=== PATIENT | male | born 1995 | race Caucasian/White ===

== ENCOUNTER 2017-05-08 18:45 | Emergency (ER) | payer OTHER ==
[2017-05-08 19:29] VITALS: BP 131/86; PULSE 91; RESP 18; TEMP 97.8
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
[2017-05-08] MEDS ORDERED: DIPH,PERTUS(ACELL)TETVAC-LF 0.5 ML VIAL IM ONE (20:15)
== END 2017-05-08 20:41 | disposition home or self-care (01) ==
LOC: EC 18:45
DX: S61.411A Laceration without foreign body of right hand, initial encounter (principal); F17.200 Nicotine dependence, unspecified, uncomplicated; Z23 Encounter for immunization; Z88.2 Allergy status to sulfonamides; Y08.02XA Assault by strike by baseball bat, initial encounter; Y93.89 Activity, other specified
CPT/HCPCS: 12002; 90471; 90715; 99282

== ENCOUNTER 2020-08-25 12:51 | Emergency (ER) | payer OTHER ==
[2020-08-25 13:03] VITALS: TEMP 97.9
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
[2020-08-25] MEDS ORDERED: ACET/COD 300 MG/30 MG STARTER PACK 6 TAB BTL PO STA (14:02)
[2020-08-25 14:15] VITALS: BP 113/85; PULSE 77; RESP 16
== END 2020-08-25 14:16 | disposition home or self-care (01) ==
LOC: EC 12:51
DX: S43.101A Unspecified dislocation of right acromioclavicular joint, initial encounter (principal); F17.200 Nicotine dependence, unspecified, uncomplicated; Z88.2 Allergy status to sulfonamides; V49.50XA Passenger injured in collision with unspecified motor vehicles in traffic accident, initial encounter; Y92.009 Unspecified place in unspecified non-institutional (private) residence as the place of occurrence of the external cause
CPT/HCPCS: 71046; 99284

== ENCOUNTER 2024-04-04 19:16 | Emergency (ER) | payer OTHER ==
--- NOTE | 2024-04-04 19:41 | ED ---
General Adult HPI - General Source: patient, RN notes reviewed Mode of arrival: ambulatory Limitations: no limitations <Lilli Amato - Last Filed: 04/04/24 19:39> - General Source: patient, RN notes reviewed Mode of arrival: ambulatory Limitations: no limitations <Zheng Carmona - Last Filed: 04/04/24 22:34> - General Chief complaint: Head Injury Stated complaint: [facility]-Head injury Time Seen by Provider: 04/04/24 19:39 - History of Present Illness Initial comments: Quick note: 28-year-old male presents to the emergency department for evaluation of head injury. Patient states that while at work the patient reports that he hit his head on a mold. Denies LOC. (Lilli Amato) Patient is a 28-year-old male present to the emergency department with headache. Patient was at work and turned and struck his head on a welding at work. Patient had very blurry vision and has had headache somewhat severe since that time. No loss of consciousness. No weakness or confusion. No vomiting. Patient did strike his head at a previous job a week ago as well. (Zheng Carmona) - Related Data Home Medications Medication Instructions Recorded Confirmed No Known Home Medications 05/08/17 05/08/17 Allergies Allergy/AdvReac Type Severity Reaction Status Date / Time Sulfa (Sulfonamide Allergy Unknown Verified 04/04/24 19:36 Antibiotics) Childhood Review of Systems ROS Other: All systems not noted in ROS Statement are negative. <Lilli Amato - Last Filed: 04/04/24 19:39> ROS Other: All systems not noted in ROS Statement are negative. Constitutional: Denies: fever Eyes: Denies: eye pain ENT: Denies: ear pain Respiratory: Denies: cough Cardiovascular: Denies: chest pain Endocrine: Denies: fatigue Gastrointestinal: Denies: abdominal pain Neurological: Reports: as per HPI, headache <Zheng Carmona - Last Filed: 04/04/24 22:34> ROS Statement: Those systems with pertinent positive or pertinent negative responses have been documented in the HPI. Past Medical History Past Medical History: Asthma History of Any Multi-Drug Resistant Organisms: None Reported Past Surgical History: No Surgical Hx Reported Past Psychological History: ADD/ADHD Smoking Status: Current every day smoker, Vaper Past Alcohol Use History: Occasional Past Drug Use History: Marijuana <Lilli Amato - Last Filed: 04/04/24 19:39> General Exam Limitations: no limitations <Lilli Amato - Last Filed: 04/04/24 19:39> Limitations: no limitations General appearance: alert, in no apparent distress Head exam: Present: atraumatic, normocephalic Eye exam: Present: normal appearance, PERRL, EOMI. Absent: nystagmus ENT exam: Present: normal exam Neck exam: Present: normal inspection. Absent: tenderness Respiratory exam: Present: normal lung sounds bilaterally Cardiovascular Exam: Present: regular rate, normal rhythm GI/Abdominal exam: Present: soft. Absent: tenderness Extremities exam: Present: normal inspection, full ROM. Absent: tenderness Neurological exam: Present: alert, oriented X3, CN II-XII intact. Absent: motor sensory deficit Expanded Neurological exam: Present: protecting the airway Patient oriented to: Present: person, place, time Speech: Present: fluid speech Cranial nerves: EOM's Intact: Normal Motor strength exam: RUE: 5, LUE: 5, RLE: 5, LLE: 5 Eye Response: (4) open spontaneously Motor Response: (6) obeys commands Verbal Response: (5) oriented Psychiatric exam: Present: normal affect, normal mood Skin exam: Present: normal color <Zheng Carmona - Last Filed: 04/04/24 22:34> - General Exam Comments Initial Comments: Visual Physical Exam Vital signs reviewed General: Well-appearing, nontoxic, no acute distress. Head: Normocephalic, atraumatic Eyes: PERRLA, EOMI ENT: Airway patent Chest: Nonlabored breathing Skin: No visual rash, normal skin tone Neuro: Alert and oriented 3 Musculoskeletal: No gross abnormalities (Lilli Amato) Course Vital Signs 04/04/24 19:34 Temperature 97.5 F L Pulse Rate 74 Respiratory 18 Rate Blood Pressure 113/78 O2 Sat by Pulse 99 Oximetry Medical Decision Making <Lilli Amato - Last Filed: 04/04/24 19:39> <Zheng Carmona - Last Filed: 04/04/24 22:34> - Medical Decision Making Quick note preformed and electronically signed by Lilli Amato PA-C (Lilli Amato) Head CT ordered secondary to blurry vision and continued headache. Was pt. sent in by a medical professional or institution (, YUE, [employer], urgent care, hospital, or alf...) When possible be specific @ -No Did you speak to anyone other than the patient for history (EMS, parent, family, police, friend...)? What history was obtained from this source @ -No Did you review nursing and triage notes (agree or disagree)? Why? @ -I reviewed and agree with nursing and triage notes Were old charts reviewed (outside hosp., previous admission, EMS record, old EKG, old radiological studies, urgent care reports/EKG's, alf records)? Report findings @ -No old charts were reviewed Differential Diagnosis (chest pain, altered mental status, abdominal pain women, abdominal pain men, vaginal bleeding, weakness, fever, dyspnea, syncope, headache, dizziness, GI bleed, back pain, seizure, CVA, palpatations, mental health, musculoskeletal)? @ -Differential Headache: Migraine, tension, cluster, carbon monoxide, central venous thrombosis, pension karma temporal arteritis, acute closure glaucoma, intercranial hemorrhage, mastoiditis, sinusitis, head injury, this is not meant to be an all-inclusive list. EKG interpreted by me (3pts min.). @ -As above X-rays interpreted by me (1pt min.). @ -None done CT interpreted by me (1pt min.). @ -CT scan of the brain does not reveal acute abnormality U/S interpreted by me (1pt. min.). @ -None done What testing was considered but not performed or refused? (CT, X-rays, U/S, labs)? Why? @ -None What meds were considered but not given or refused? Why? @ -None Did you discuss the management of the patient with other professionals (professionals i.e. , YUE, [employer], lab, RT, psych nurse, hospice social worker, mink slicer, teacher, president and chief executive officer, case checker)? Give summary @ -No Was smoking cessation discussed for >3mins.? @ -No Was critical care preformed (if so, how long)? @ -No Were there social determinants of health that impacted care today? How? (Homelessness, low income, unemployed, alcoholism, drug addiction, transportation, low edu. Level, literacy, decrease access to med. care, alf, rehab)? @ -No Was there de-escalation of care discussed even if they declined (Discuss DNR or withdrawal of care, Hospice)? DNR status @ -No What co-morbidities impacted this encounter? (DM, HTN, Smoking, COPD, CAD, Cancer, CVA, ARF, Chemo, Hep., AIDS, mental health diagnosis, sleep apnea, morbid obesity)? @ -None Was patient admitted / discharged? Hospital course, mention meds given and route, prescriptions, significant lab abnormalities, going to OR and other pertinent info. @ -Patient updated on results and plan. Patient will be discharged with re commended follow-up [employer] health services. Undiagnosed new problem with uncertain prognosis? @ -No Drug Therapy requiring intensive monitoring for toxicity (Heparin, Nitro, Insulin, Cardizem)? @ -No Were any procedures done? @ -No Diagnosis/symptom? @ -Head contusion Acute, or Chronic, or Acute on Chronic? @ -Acute Uncomplicated (without systemic symptoms) or Complicated (systemic symptoms)? @ -Default Side effects of treatment? @ -No Exacerbation, Progression, or Severe Exacerbation? @ -No Poses a threat to life or bodily function? How? (Chest pain, USA, VT, pneumonia, PE, COPD, DKA, ARF, appy, cholecystitis, CVA, Diverticulitis, Homicidal, Suicidal, threat to staff... and all critical care pts) @ -No (Zheng Carmona) Disposition <Lilli Amato - Last Filed: 04/04/24 19:39> Is patient prescribed a controlled substance at d/c from ED?: No Time of Disposition: 22:34 <Zheng Carmona - Last Filed: 04/04/24 22:34> Clinical Impression: Head contusion Disposition: HOME SELF-CARE Condition: Stable Instructions (If sedation given, give patient instructions): Head Injury (ED) Additional Instructions: [id number] Tylenol as needed. Please do follow-up with primary care physician/[facility] services in the next day or 2 for recheck. Return for confusion, weakness, persistent vomiting, worsening symptoms or other concerns. Referrals: Jaciel Aggarwal MD [STAFF PHYSICIAN] - 1-2 days
[2024-04-04 20:11] VITALS: RESP 18; TEMP 97.5
--- NOTE | 2024-04-04 22:03 | CT ---
EXAMINATION TYPE: CT brain wo con DATE OF EXAM: 04/04/2024 COMPARISON: 09/28/2016 HISTORY: Comes in after hitting his head on a "mold" at work. -Loc. Blurred vision CT DLP: 1115.4 mGycm. Automated Exposure Control for Dose Reduction was Utilized. TECHNIQUE: CT scan of the head is performed without contrast. Findings: The ventricles, basal cisterns and sulci over the convexities are within normal limits and there is n o mass effect or shift of midline structures. No abnormal density is seen throughout the brain parenchyma and there is no acute intra or extra-axia l hemorrhage. The posterior fossa including the brainstem, fourth ventricle and cerebellar pontine angles appear no rmal. Intraorbital contents appear normal and symmetric. Visualized paranasal sinuses and mastoid air cells are well aerated. The calvarium is intact. IMPRESSION: No significant abnormality seen. There is no acute bleed or mass effect.
[2024-04-04 23:05] VITALS: BP 121/81; PULSE 65
== END 2024-04-05 00:31 | disposition home or self-care (01) ==
LOC: EC 19:16
DX: S00.93XA Contusion of unspecified part of head, initial encounter (principal); F17.290 Nicotine dependence, other tobacco product, uncomplicated; Z88.2 Allergy status to sulfonamides; W22.8XXA Striking against or struck by other objects, initial encounter
CPT/HCPCS: 70450; 99283